=== PATIENT | male | born 2000 | race Caucasian/White ===

== ENCOUNTER 2019-04-10 13:59 | Emergency (ER) | payer MEDICAID ==
[2019-04-10 14:05] VITALS: BP 123/57
[2019-04-10] MEDS ORDERED: DIPH/PERTUSS(ACELL)/TETANUS VAC/PF 0.5 ML SYR (>=10YO) IM ONE (14:20)
--- NOTE | 2019-04-10 14:26 | ER Document Report ---
HPI - HPI Pain Level: 3 Notes: Patient is a 19-year-old male no significant past medical history presents complaining of a stingray sting to his right medial heel that occurred prior to arrival. Patient states that it does hurt currently but did have some pain and bleeding initially. He states that the puncture site is very small and he did not notice any barbs in his skin. He is able to ambulate without difficulty. Denies drug allergies. Denies any headache, fever, URI, sore throat, chest pain, palpitations, syncope, cough, shortness of breath, wheeze, dyspnea, abdominal pain, nausea/vomiting/diarrhea, urinary retention, dysuria, hematuria, loss of control of bowel or bladder, numbness/tingling, muscle paralysis/weakness, or rash. - ROS Systems Reviewed and Negative: Yes All other systems reviewed and negative Past Medical History - Social History Smoking Status: Unknown if Ever Smoked Family History: Reviewed & Not Pertinent - Immunizations Immunizations up to date: Yes Hx Diphtheria, Pertussis, Tetanus Vaccination: Yes Vertical Provider Document - CONSTITUTIONAL Agree With Documented VS: Yes Notes: PHYSICAL EXAMINATION: GENERAL: Well-appearing, well-nourished and in no acute distress. LUNGS: Breath sounds clear to auscultation bilaterally and equal. No wheezes rales or rhonchi. HEART: Regular rate and rhythm without murmurs, rubs, gallops. Musculoskeletal: Rt foot/ankle: + small 0.5cm puncture site noted w/o any obvious foreign body to the rt medial heel area. The wound appears superficial. Non-tender. No discharge. No ecchymosis or deformity. FROM to passive/active. Strength 5+/5. N/V intact distal. No bony tenderness. Achilles intact. Extremities: No cyanosis, clubbing, or edema b/l. Peripheral pulses 2+. Capillary refill less than 3 seconds. NEUROLOGICAL: Normal speech, normal gait. Normal sensory, motor exams PSYCH: Normal mood, normal affect. SKIN: see above Course - Re-evaluation Re-evalutation: 04/10/19 Patient is an afebrile, well-hydrated, 19-year-old male who presents to the ED with rt foot pain secondary to possible stingray sting w/o evidence of foreign body or superimposed infection. Vitals are acceptable without any significant tachycardia, tachypnea, or hypoxia. PE is otherwise unremarkable for any neurovascular compromise, obvious tendon/ligament rupture, obvious fracture/dislocation, septic joint. X-ray was unremarkable for any acute pathology. Pt not currently experiencing any discomfort. Patient is nontoxic- appearing. Patient is able to ambulate and weight-bear. No other labs or imaging warranted at this time based on H&P. Reviewed hot water soaks. Rx for doxy with sunlight precautions reviewed. Conservative measures otherwise for symptoms. Recheck with your PCM in 3-5 days. Consider consult orthopedics. Return to the ED with any worsening/concerning symptoms otherwise as reviewed in discharge. Patient is in agreement. - Vital Signs Vital signs: Temp Pulse Resp BP Pulse Ox 99.1 F 77 16 123/57 L 96 04/10/19 14:05 04/10/19 14:05 04/10/19 14:05 04/10/19 14:05 04/10/19 14:05 Discharge - Discharge Clinical Impression: Contact with stingray as cause of accidental injury, Right foot pain Condition: Stable Disposition: HOME, SELF-CARE Additional Instructions: Soak your foot in as hot of water as you can stand without burning yourself Keep the skin clean Wash with soap and water Tylenol/ibuprofen if needed Triple antibiotic ointment daily Take medication as directed and you will burn more easily in the sun on this medication. Monitor for any worsening symptoms Recheck with your PCM in 3-5 days Return to the ED with any worsening symptoms and/or development of fever, headache, chest pain, palpitations, syncope, shortness of breath, trouble breathing, abdominal pain, n/v/d, abscess, purulent discharge, red streaks, worsening swelling, or other worsening symptoms that are concerning to you. Prescriptions: Doxycycline Hyclate 100 mg PO BID #20 capsule Referrals: [facility] ([facility]) [Provider Group] - Follow up as needed
--- NOTE | 2019-04-10 14:46 | RADIOLOGY REPORT (SQ) ---
EXAM DESCRIPTION: FOOT RIGHT COMPLETE COMPLETED DATE/TIME: 04/10/2019 2:34 pm REASON FOR STUDY: stingray sting rt medial heel COMPARISON: None. EXAM PARAMETERS: NUMBER OF VIEWS: Three views. TECHNIQUE: AP, lateral and oblique radiographic images acquired of the right foot. LIMITATIONS: None. FINDINGS: MINERALIZATION: Normal. BONES: No acute fracture or dislocation. No worrisome bone lesions. JOINTS: No effusion. SOFT TISSUES: No significant soft tissue swelling. No radiopaque foreign body. OTHER: No other significant finding. IMPRESSION: No radiopaque foreign body.NO FRACTURE. TECHNICAL DOCUMENTATION: JOB ID: [id number] [place]-72 2010 [employer]- All Rights Reserved Reading location - IP/workstation name: [email or web address]
== END 2019-04-10 14:55 | disposition home or self-care (01) ==
LOC: ER 13:59
DX: T63.511A Toxic effect of contact with stingray, accidental (unintentional), initial encounter (principal); S91.331A Puncture wound without foreign body, right foot, initial encounter; M79.671 Pain in right foot
CPT/HCPCS: 90471; 90715; 99283